=== PATIENT | male | born 1960 | race Caucasian/White ===

== ENCOUNTER 2020-01-30 06:52 | Emergency (ER) | payer OTHER ==
[~2020-01-30] VITALS: Ht 182.9 cm; Wt 133.4 kg
[2020-01-30] MEDS ORDERED: amLODIPine 5mg tablet PO ONE (07:15)
[2020-01-30 07:38] LABS: BASOPHILS # (AUTO) 0.1 X10'3 (0-0.2); EOSINOPHILS # (AUTO) 0.2 X10'3 (0-0.9); EOSINOPHILS % (AUTO) 3.3 % (0-6); HEMATOCRIT 46.4 % (42.0-52.0); HEMOGLOBIN 15.9 g/dl (14.0-17.9); LYMPHOCYTES % (AUTO) 34.9 % (21-51); MEAN CORPUSCULAR HEMOGLOBIN 31.4 PG (27.0-31.0); MEAN CORPUSCULAR HGB CONC 34.3 g/dL (33.0-36.5); MEAN CORPUSCULAR VOLUME 91.5 FL (78-98); MEAN PLATELET VOLUME 7.8 FL (7.4-10.4); MONOCYTES # (AUTO) 0.4 X10'3 (0-0.9); MONOCYTES % (AUTO) 7.7 % (2-12); NEUTROPHILS # (AUTO) 3.1 X10'3 (1.8-7.7); NEUTROPHILS % (AUTO) 53.1 % (42-75); PLATELET COUNT 248 X10'3 (140-440); RED BLOOD COUNT 5.07 X10'6 (4.70-6.10); RED CELL DISTRIBUTION WIDTH 13.7 % (11.5-14.5); WHITE BLOOD COUNT 5.8 X10'3 (4.5-11.0)
[2020-01-30 07:49] LABS: PARTIAL THROMBOPLASTIN TIME 26 SECONDS (22-32)
[2020-01-30 07:56] LABS: ALANINE AMINOTRANSFERASE 59 U/L (12-78); ALBUMIN 3.6 G/DL (3.4-5.0); ALBUMIN/GLOBULIN RATIO 1.1 (1.1-1.5); ALKALINE PHOSPHATASE 60 IU/L (46-116); ANION GAP 12 (8-16); ASPARTATE AMINO TRANSFERASE 31 U/L (10-37); BILIRUBIN,TOTAL 0.5 MG/DL (0.1-1.0); BLOOD UREA NITROGEN 24 MG/DL (7-18); BUN/CREATININE RATIO 23.3 (5.4-32.0); CALCIUM 8.8 MG/DL (8.5-10.1); CHLORIDE 107 MMOL/L (99-107); CREATININE 1.03 MG/DL (0.60-1.10); GLUCOSE 100 MG/DL (70-104); POTASSIUM 4.4 MMOL/L (3.5-5.1); SODIUM 142 MMOL/L (135-145); TOTAL CARBON DIOXIDE 23.5 MMOL/L (24-32); eGFR 73 ML/MIN
[2020-01-30] MEDS ORDERED: AMLO5TAB4 PO (08:19)
[2020-01-30 08:40] VITALS: BP 168/111
== END 2020-01-30 08:44 | disposition home or self-care (01) ==
LOC: ER 06:52
DX: I10 Essential (primary) hypertension (principal); I48.11 Longstanding persistent atrial fibrillation; Z79.899 Other long term (current) drug therapy
CPT/HCPCS: 36415; 80053; 85025; 85610; 85730; 93005; 99284

== ENCOUNTER 2020-02-03 10:36 | Day surgery (SDC) | payer OTHER ==
[2020-02-03] VITALS (15 sets, daily range): BP systolic 105–184; BP diastolic 67–110
[~2020-02-03] VITALS: Ht 182.9 cm; Wt 131.7 kg
[~2020-02-03 10:36] MED LIST: AMLO5TAB4 PO
[2020-02-03] MEDS ORDERED: fentaNYL/PF 50MCG/1 ML 2ML syringe IV ONE ×2 (10:55→11:30)
[2020-02-03] MEDS ORDERED: normal saline 1000ml 1,000 ML IV SCH (10:55)
[2020-02-03] MEDS ORDERED: MIDAZolam 1mg/ml 10ml vial IV ONE ×2 (10:55→11:35)
[2020-02-03] MEDS ORDERED: APIX5TAB3 PO (11:01)
[2020-02-03] MEDS ORDERED: METO-539 PO (11:01)
[2020-02-03] MEDS ORDERED: ATOR40TA PO (11:01)
[2020-02-03] MEDS ORDERED: LOSA25TA96 PO (11:01)
[2020-02-03] MEDS ORDERED: PARO25TA17 PO (11:01)
[2020-02-03] MEDS ORDERED: FLEC100T2 PO (11:01)
[2020-02-03] MEDS ORDERED: hydrALAZINE 20mg/ml inj. IV ONE (13:50)
== END 2020-02-03 14:15 | disposition home or self-care (01) ==
LOC: SSTAY O 10:36
PROVIDERS: ATTEND Internal Medicine Interventional Cardiology
DX: I48.0 Paroxysmal atrial fibrillation (principal); G47.33 Obstructive sleep apnea (adult) (pediatric); E78.49 Other hyperlipidemia; I10 Essential (primary) hypertension; I65.23 Occlusion and stenosis of bilateral carotid arteries; Z79.01 Long term (current) use of anticoagulants; Z79.899 Other long term (current) drug therapy
CPT/HCPCS: 92960; 93005; 94760; 94799; J0360; J2250; J3010; J7030

== ENCOUNTER 2022-08-19 12:38 | Day surgery (SDC) | payer BC ==
[2022-08-15 09:12] LABS: MEAN CORPUSCULAR VOLUME 90.4 FL (78-98); RED CELL DISTRIBUTION WIDTH 13.7 % (11.5-14.5)
[2022-08-15 09:17] LABS: HEMATOCRIT 44.6 % (42.0-52.0); HEMOGLOBIN 15.1 g/dl (14.0-17.9); MEAN CORPUSCULAR HEMOGLOBIN 30.5 PG (27.0-31.0); MEAN CORPUSCULAR HGB CONC 33.8 g/dL (33.0-36.5); MEAN PLATELET VOLUME 7.5 FL (7.4-10.4); PLATELET COUNT 295 X10'3 (140-440); RED BLOOD COUNT 4.94 X10'6 (4.70-6.10)
[2022-08-15 09:22] LABS: APTT 29 SECONDS (22-32)
[2022-08-15 09:46] LABS: PLATELET ESTIMATE NORMAL; TOTAL CELLS COUNTED 100
[2022-08-15 10:27] LABS: ALBUMIN 3.8 G/DL (3.4-5.0); ANION GAP 11 (8-16); BLOOD UREA NITROGEN 19 MG/DL (7-18); BUN/CREATININE RATIO 18.8 (10.0-20.0); CALCIUM 8.7 MG/DL (8.5-10.1); CHLORIDE 106 MMOL/L (99-107); CREATININE 1.01 MG/DL (0.60-1.10); GLUCOSE 100 MG/DL (70-104); POTASSIUM 4.1 MMOL/L (3.5-5.1); SODIUM 141 MMOL/L (135-145); TOTAL CARBON DIOXIDE 23.8 MMOL/L (24-32); eGFR 74 ML/MIN
[2022-08-19] VITALS (8 sets, daily range): BP systolic 146–183; BP diastolic 64–115
[~2022-08-19] VITALS: Ht 182.9 cm; Wt 134.4 kg
[~2022-08-19 12:38] MED LIST changes: +APIX5TAB3 PO; +ATOR40TA PO; +FLEC100T2 PO; +LOSA25TA96 PO; +METO-539 PO; +PARO25TA17 PO
[2022-08-19] MEDS ORDERED: fentaNYL/PF 50MCG/1 ML 2ML syringe IV ONE (12:50)
[2022-08-19] MEDS ORDERED: MIDAZolam 1mg/ml 10ml vial IV ONE (12:50)
[2022-08-19] MEDS ORDERED: normal saline 1000ml 1,000 ML IV SCH (12:50)
[2022-08-19] MEDS ORDERED: SOTA120T PO (13:20)
[2022-08-19] MEDS ORDERED: AMLO1CAP23 PO (13:20)
[2022-08-19] MEDS ORDERED: ATOR-2 PO (13:20)
== END 2022-08-19 15:45 | disposition home or self-care (01) ==
LOC: SSTAY O 12:38
PROVIDERS: ATTEND Student in an Organized Health Care Education/Training Program
DX: I48.0 Paroxysmal atrial fibrillation (principal); I10 Essential (primary) hypertension; G47.33 Obstructive sleep apnea (adult) (pediatric); I34.0 Nonrheumatic mitral (valve) insufficiency; I27.20 Pulmonary hypertension, unspecified; Z87.891 Personal history of nicotine dependence; Z79.899 Other long term (current) drug therapy; Z79.01 Long term (current) use of anticoagulants
CPT/HCPCS: 80048; 85025; 85610; 85730; 92960; J2250; J3010; J7030; 85007; A4620

== ENCOUNTER 2024-07-04 09:06 | Day surgery (SDC) | payer MEDICARE, BC ==
[2024-07-04] VITALS (12 sets, daily range): BP systolic 108–132; BP diastolic 66–82; PULSE 53–81; RESP 12–20; TEMP 97.9; O2SAT 96–99
[~2024-07-04] VITALS: Ht 180.3 cm; Wt 94.7 kg
[~2024-07-04 09:06] MED LIST changes: +AMLO1CAP23 PO; -AMLO5TAB4 PO; +ATOR-2 PO; -ATOR40TA PO; -FLEC100T2 PO; -LOSA25TA96 PO; -METO-539 PO; +SOTA120T PO
[2024-07-04] MEDS ORDERED: CHOL500049 PO (09:44)
[2024-07-04] MEDS ORDERED: CHRO1000 PO (09:45)
[2024-07-04] MEDS ORDERED: [UNRECOGNIZED DRUG - CODE] (09:46)
[2024-07-04] MEDS ORDERED: VITA-288 PO (09:46)
[2024-07-04] MEDS ORDERED: OMEG100037 PO (09:47)
[2024-07-04] MEDS ORDERED: ASCO500C17 PO (09:47)
[2024-07-04] MEDS ORDERED: [UNRECOGNIZED DRUG - CODE] (09:47)
[2024-07-04] MEDS ORDERED: LYSI500T11 PO (09:48)
[2024-07-04] MEDS ORDERED: AMI200T PO (09:49)
[2024-07-04 10:06] LABS: BASOPHILS # (AUTO) 0.1 X10'3 (0-0.2); BASOPHILS % (AUTO) 1.6 % (0-1); EOSINOPHILS # (AUTO) 0.1 X10'3 (0-0.9); EOSINOPHILS % (AUTO) 2.8 % (0-6); HEMATOCRIT 45.8 % (42.0-52.0); HEMOGLOBIN 15.5 g/dl (14.0-17.9); LYMPHOCYTES # (AUTO) 1.3 X10'3 (1.1-4.8); LYMPHOCYTES % (AUTO) 33.4 % (21-51); MEAN CORPUSCULAR HEMOGLOBIN 31.4 PG (27.0-31.0); MEAN CORPUSCULAR HGB CONC 33.9 g/dL (33.0-36.5); MEAN CORPUSCULAR VOLUME 92.4 FL (78-98); MONOCYTES # (AUTO) 0.3 X10'3 (0-0.9); MONOCYTES % (AUTO) 9.1 % (2-12); NEUTROPHILS % (AUTO) 53.1 % (42-75); PLATELET COUNT 341 X10'3 (140-440); RED BLOOD COUNT 4.95 X10'6 (4.70-6.10); RED CELL DISTRIBUTION WIDTH 14.9 % (11.5-14.5); WHITE BLOOD COUNT 3.8 X10'3 (4.5-11.0)
[2024-07-04 10:15] LABS: ALBUMIN 3.8 G/DL (3.4-5.0); ANION GAP 9 (8-16); BLOOD UREA NITROGEN 20 MG/DL (7-18); BUN/CREATININE RATIO 16.9 (10.0-20.0); CALCIUM 8.9 MG/DL (8.5-10.1); CHLORIDE 106 MMOL/L (99-107); CREATININE 1.18 MG/DL (0.60-1.10); GLUCOSE 95 MG/DL (70-104); POTASSIUM 4.2 MMOL/L (3.5-5.1); SODIUM 141 MMOL/L (135-145); TOTAL CARBON DIOXIDE 25.9 MMOL/L (24-32); eCRCL 66 ML/MIN; eGFR 62 ML/MIN
[2024-07-04 10:20] LABS: APTT 27 SECONDS (22-32); INR 1.2 INR; PROTHROMBIN TIME 11.8 SECONDS (9.0-12.0)
[2024-07-04] MEDS: fentaNYL/PF 50MCG/1 ML 2ML syringe IV ONE (12:41)
[2024-07-04] MEDS: MIDAZolam 1mg/ml 10ml vial IV ONE (12:41)
[2024-07-04] MEDS: normal saline 1000ml 1,000 ML IV SCH (12:42)
--- NOTE | 2024-07-04 12:52 | ELECTROCARDIOGRAPH REPORT ---
[facility] Test Date: 2024-07-04 Test Time: 12:49:10 Pat Name: LACY WHITE Department: [facility] Patient ID: [facility]-[id number] Room: Gender: M Hand Quilter: MIGEL : 1960 Requested By: FRANCK ROJAS Order Number: [id number] Reading MD: Dr. BENJAMIN Dumas Measurements Intervals [place] Rate: 57 P: 0 WV: 225 QRS: -35 QRSD: 105 T: 10 QT: 432 QTc: 421 Interpretive Statements Sinus rhythm Prolonged W[place] interval Left axis deviation Borderline T wave abnormalities Electronically Signed On 07-04-2024 13:29:[address] BENJAMIN Dumas Please click the below link to view image of tracing.
--- NOTE | 2024-07-04 13:52 | PROCEDURE NOTE CC ---
Procedure Note Providers to CC CC: KAMI ROJAS MD ~ Description Planned Procedure Cardioversion Indications Symptomatic Atrial Fibrillation Post Operative Dx: Same Type of Anesthesia Moderate Sedation. Description It was confirmed that patient has been taking oral anticoagulation without interruption for at least 4 weeks. The appropriate time-out procedure was performed including proper identification of the patient, physician, procedure, documentation, and there were no safety issues identified. The patient participated actively in this. After sedation was achieved, the patient was placed in the supine position and hands free patches were placed on their chest in the AP-lateral position. 1 synchronized cardioversion was provided at 200 Joules with conversion to normal sinus rhythm. This was confirmed on EKG. Complication: None The patient tolerated the procedure well without complications. FRANCK ROJAS MD July 04, 2024 13:52
== END 2024-07-04 14:05 | disposition home or self-care (01) ==
LOC: SSTAY O 09:06
PROVIDERS: ATTEND Student in an Organized Health Care Education/Training Program
DX: I48.0 Paroxysmal atrial fibrillation (principal); I10 Essential (primary) hypertension; I27.20 Pulmonary hypertension, unspecified; G47.33 Obstructive sleep apnea (adult) (pediatric); Z79.899 Other long term (current) drug therapy; Z98.890 Other specified postprocedural states
CPT/HCPCS: 36415; 80048; 85025; 85610; 85730; 92960; 93005; J2250; J3010; J7030